=== PATIENT | male | born 2000 ===

== ENCOUNTER 2020-12-02 15:06 | Emergency (ER) | payer SELFPAY ==
[~2020-12-02] VITALS: Ht 185.4 cm; Wt 100.0 kg
[2020-12-02 15:07] VITALS: BP 131/73
== END 2020-12-02 16:14 | disposition left against medical advice (07) ==
LOC: M ED 15:06
DX: Z53.21 Procedure and treatment not carried out due to patient leaving prior to being seen by health care provider (principal)